=== PATIENT | female | born 1990 | race Caucasian/White ===

== ENCOUNTER 2020-05-31 10:13 | Emergency (ER) | payer OTHER, SELFPAY ==
[2020-05-31 10:26] VITALS: BP 133/71; PULSE 82; RESP 16; TEMP 37.1; O2SAT 100
--- NOTE | 2020-05-31 10:54 | ED.FEMALEGU ---
HPI - Female Genitourinary General Chief complaint: Urogenital-Female Stated complaint: Stomach Pain Time Seen by Provider: 05/31/20 10:45 Source: patient Mode of arrival: ambulatory Limitations: no limitations History of Present Illness HPI Narrative: Brandi Alexander is a 29 yo female with a PMH of anxiety who comes with dysuria, burning with urination.Started about 3 days ago; started to have difficulty emptying bladder and is irritated the genital area does not think has an STD but wants to be checked for for this. Patient is not having abdominal pain per se is unsure of the quantity of vaginal discharge Related Data Allergies Allergy/AdvReac Type Severity Reaction Status Date / Time azithromycin Allergy Mild HIVES Verified 09/18/17 19:48 Sulfa (Sulfonamide Allergy Mild Hives Verified 05/31/20 10:29 Antibiotics) ALL CILLINS Allergy Mild Hives Uncoded 05/31/20 10:29 Review of Systems Review of Systems: Narrative: CONSTITUTIONAL: Denies fever, chills, sweats. EYES: Denies visual changes, redness, discharge. ENT: Denies rhinorrhea, congestion, sore throat, otalgia. CARDIOVASCULAR: Denies chest pain, palpitations, edema. RESPIRATORY: Denies dyspnea, wheezing, cough GASTROINTESTINAL: Denies abdominal pain, nausea, vomiting, diarrhea. GENITOURINARY: Has dysuria, hematuria, abnormal discharge SKIN: Denies rash or itching. NEUROLOGIC: Denies numbness, or focal weakness. PSYCHIATRIC: Denies anxiety or depression. PMFSH Past Medical History Medical History Anxiety Family History Family History Other Hypertension Social History Social History (Updated 05/31/20 @ 10:59 by Zhanna Weber CNP) Smoking status: Never smoker Alcohol intake: current Gender identity (if verbalized by the patient): Female Comments At time of signature, I agree with nursing past medical, surgical, social and family history. There is no relevant family history pertinent to the presenting complaint. Exam Narrative: Exam Narrative: GENERAL: This is a well-nourished, well-developed patient, in mild distress. HEAD: normocephalic, atraumatic. EYES: Sclera clear/white. Vision is grossly intact. EARS: External ears normal, Hearing grossly intact. NOSE: External nose normal without nasal discharge, nares without redness, no rhinorrhea. THROAT: Mucous membranes moist, NECK: Neck supple, CARDIOVASCULAR: Regular rate and rhythm without murmurs, gallops, or rubs. RESPIRATORY: Clear to auscultation. Breath sounds equal bilaterally. No wheezes, rales, or rhonchi. GASTROINTESTINAL: Abdomen soft, non-tender, SKIN: warm, intact with no suspicious lesions or rash, good texture and turgor. : Minimal amount of white thin vaginal discharge vault appears somewhat reddened labia is also erythematous but states that she shaved this morning NEURO: awake, alert, and oriented to person, place and time. There were no obvious focal neurologic abnormalities. Steady gait EXTREMITIES: Normal range of motion. BACK: Nontender without deformity Course Course Emergency Course: Patient comes with dysuria UA dip was totally negative but patient is unsure about STD status so check for STD. Based on pelvic exam, treated for vaginosis with Diflucan. STDs were not treated for preventatively because patient has allergies to the medications used to treat gonorrhea and chlamydia If the STD tests are positive she will need an alternative treatment for STDs Follow-up with [facility] Vital Signs Vital signs: Vital Signs Temperature 98.7 F 05/31/20 10: Pulse Rate 82 05/31/20 10:26 Respiratory Rate 16 05/31/20 10:26 Blood Pressure 133/71 05/31/20 10:26 Pulse Oximetry 100 05/31/20 10:26 Temperature 98.7 F 05/31/20 10:26 Pulse Rate 82 05/31/20 10:26 Respiratory Rate 16 05/31/20 10:26 Blood Pressure 133/71 05/31/20 10:26 Pu
== END 2020-05-31 11:10 | disposition home or self-care (01) ==
PROVIDERS: Emergency Provider Nurse Practitioner; PCP Nurse Practitioner Family
DX: N76.0 Acute vaginitis (principal)
CPT/HCPCS: 81003; 87491; 87591; 87661; 99214; G0463

== ENCOUNTER 2020-06-08 10:32 | Outpatient (NON) | payer OTHER, SELFPAY ==
[2020-06-08 21:25] LABS: SARS-CoV-2 RNA PCR Negative
== END 2020-06-08 10:33 ==
PROVIDERS: PCP Nurse Practitioner Family; Visit Provider Nurse Practitioner Family
DX: Z20.828 Contact with and (suspected) exposure to other viral communicable diseases (principal); R10.9 Unspecified abdominal pain; R19.7 Diarrhea, unspecified; J02.9 Acute pharyngitis, unspecified
CPT/HCPCS: 87635; C9803; U0003

== ENCOUNTER 2020-11-13 15:25 | Emergency (ER) | payer OTHER, SELFPAY ==
[2020-11-13 15:44] VITALS: BP 112/68; PULSE 72; RESP 16; TEMP 36.8; O2SAT 100
--- NOTE | 2020-11-13 15:44 | ED.URI ---
HPI - URI/Sore Throat General Chief Complaint: Upper Respiratory Infection Stated Complaint: sore throat/fever Time Seen by Provider: 11/13/20 15:59 Source: patient and RN notes reviewed Mode of arrival: ambulatory Limitations: no limitations History of Present Illness HPI Narrative: 30-year-old female presents with concern for 3-day history of chills, sweats, headache, nausea. Reports sore throat in the morning. She denies cough, shortness of breath, loss of sense of taste or smell, poor appetite, fever, body aches. Denies any known sick contacts. Denies any intervention. MD elicited complaint: sore throat Related Data Home Medications Medication Instructions Recorded Confirmed Daily Vitamins 11/13/20 Allergies Allergy/AdvReac Type Severity Reaction Status Date / Time azithromycin Allergy Mild HIVES Verified 09/18/17 19:48 Sulfa (Sulfonamide Allergy Mild Hives Verified 05/31/20 10:29 Antibiotics) ALL CILLINS Allergy Mild Hives Uncoded 05/31/20 10:29 Review of Systems Review of Systems: Narrative: CONSTITUTIONAL: Denies malaise or fever. Reports cold chills, hot flashes EYES: Denies visual changes, redness, or discharge. ENT: Denies rhinorrhea, congestion, sinus pain, otalgia. Reports sore throat. CARDIOVASCULAR: Denies chest pain, palpitations, or edema. RESPIRATORY: Denies cough or dyspnea. GASTROINTESTINAL: Denies abdominal pain, vomiting, diarrhea. Reports nausea SKIN: Denies rash or itching. MUSCULOSKELETAL: Denies myalgia. NEUROLOGIC: Reports headache. All systems reviewed & are unremarkable except as noted in HPI and below PMFSH Past Medical History Medical History (Updated 11/13/20 @ 16:18 by Tonie Gibson NP) Anxiety Family History Family History Other Hypertension Social History Social History (Updated 05/31/20 @ 10:59 by Zhanna Weber CNP) Smoking status: Never smoker Alcohol intake: current Gender identity (if verbalized by the patient): Female Comments At time of signature, agree with nursing past medical, surgical, social and family history. There is no relevant family history pertinent to the presenting complaint Exam Narrative: Exam Narrative: GENERAL: Well-appearing, well-nourished, and in no acute distress. HEAD: Normocephalic EYES: PERRLA, conjunctivae clear ENT: Nares clear, turbinates erythematous, clear discharge. Mucous membranes moist. TM pearly barker with dull light reflex bilaterally; no tragal tenderness. Oropharynx not erythematous without lesions. Tonsils not enlarged and without exudate, no drooling, no hoarseness, no trismus, uvula midline. NECK: Supple. No lymphadenopathy CHEST: Clear to auscultation, breath sounds equal. No wheezing, rhonchi, rales, or stridor. No respiratory distress, speaks in full sentences. HEART: Regular rate and rhythm. No murmur heard. SKIN: Warm, dry, no rash. NEURO: Alert and oriented x3. PSYCH: Normal mood and affect Course Course Emergency Course: Patient is aware of diagnosis, understands and agrees to treatment plan. Anticipatory guidance given. Patient agrees to follow-up as directed and is aware of reasons to seek care at the emergency department. Portions of this record may have been created with voice recognition software Vital Signs Vital signs: Vital Signs Temperature 98.3 F 11/13/20 15:44 Pulse Rate 72 11/13/20 15:44 Respiratory Rate 16 11/13/20 15:44 Blood Pressure 112/68 11/13/20 15:44 Pulse Oximetry 100 11/13/20 15:44 Temperature 98.3 F 11/13/20 15:44 Pulse Rate 72 11/13/20 15:44 Respiratory Rate 16 11/13/20 15:44 Blood Pressure 112/68 11/13/20 15:44 Pulse Oximetry 100 11/13/20 15:44 Reviewed. MDM - URI/Sore Throat MDM Narrative Medical decision making narrative: Differential diagnosis considered: Andres virus, strep pharyngitis, allergic rhinitis, upper respiratory tract infection, sinusitis, rhinosinusi
[2020-11-14 19:13] LABS: SARS-CoV-2 RNA PCR Negative
== END 2020-11-13 16:25 | disposition home or self-care (01) ==
PROVIDERS: Emergency Provider Nurse Practitioner; PCP Nurse Practitioner Family
DX: J06.9 Acute upper respiratory infection, unspecified (principal); Z20.822 Contact with and (suspected) exposure to COVID-19; F41.9 Anxiety disorder, unspecified
CPT/HCPCS: 87081; 87426; 87880; 99213; C9803; G0463; U0003; U0005

== ENCOUNTER 2020-12-24 17:39 | Emergency (ER) | payer OTHER, SELFPAY ==
[2020-12-24 17:51] VITALS: BP 102/71; PULSE 82; RESP 16; TEMP 36.9; O2SAT 99
--- NOTE | 2020-12-24 18:01 | ED.URI ---
HPI - URI/Sore Throat General Chief Complaint: Upper Respiratory Infection Stated Complaint: sore throat Source: patient and RN notes reviewed Mode of arrival: ambulatory Limitations: no limitations History of Present Illness HPI Narrative: 30-year-old female presents concern for sore throat that started today. Reports her son was diagnosed with strep. Reports headache that started today which has been taking ibuprofen. She denies rhinorrhea, nasal congestion, cough, shortness of breath, body aches, chills, sweats, fever. MD elicited complaint: sore throat Related Data Home Medications Medication Instructions Recorded Confirmed No Home Medications 12/24/20 12/24/20 Allergies Allergy/AdvReac Type Severity Reaction Status Date / Time azithromycin Allergy Mild HIVES Verified 12/24/20 18:01 Sulfa (Sulfonamide Allergy Mild Hives Verified 12/24/20 18:01 Antibiotics) ALL CILLINS Allergy Mild Hives Uncoded 12/24/20 18:01 Review of Systems Review of Systems: Narrative: CONSTITUTIONAL: Denies malaise, chills, sweats, or fever. EYES: Denies visual changes, redness, or discharge. ENT: Denies rhinorrhea, congestion, sinus pain, otalgia. Reports sore throat. CARDIOVASCULAR: Denies chest pain, palpitations, or edema. RESPIRATORY: Reports cough. Denies dyspnea. GASTROINTESTINAL: Denies abdominal pain, nausea, vomiting, diarrhea SKIN: Denies rash or itching. MUSCULOSKELETAL: Denies myalgia. NEUROLOGIC: Reports headache. All systems reviewed & are unremarkable except as noted in HPI and below PMFSH Past Medical History Medical History (Updated 12/24/20 @ 18:14 by Tonie Gibson NP) Anxiety Family History Family History Other Hypertension Social History Social History (Updated 05/31/20 @ 10:59 by Zhanna Weber CNP) Smoking status: Never smoker Alcohol intake: current Gender identity (if verbalized by the patient): Female Comments At time of signature, agree with nursing past medical, surgical, social and family history. There is no relevant family history pertinent to the presenting complaint Exam Narrative: Exam Narrative: GENERAL: Well-appearing, well-nourished, and in no acute distress. HEAD: Normocephalic EYES: PERRLA, conjunctivae clear ENT: Nares clear, turbinates erythematous, clear discharge. Mucous membranes moist. TM pearly barker with sharp light reflex bilaterally; no tragal tenderness. Oropharynx erythematous without lesions. Tonsils not enlarged and without exudate, no drooling, no hoarseness, no trismus, uvula midline. NECK: Supple. No lymphadenopathy CHEST: Clear to auscultation, breath sounds equal. No wheezing, rhonchi, rales, or stridor. No respiratory distress, speaks in full sentences. HEART: Regular rate and rhythm. No murmur heard. SKIN: Warm, dry, no rash. NEURO: Alert and oriented x3. PSYCH: Normal mood and affect Course Course Emergency Course: Patient is aware of diagnosis, understands and agrees to treatment plan. Anticipatory guidance given. Patient agrees to follow-up as directed and is aware of reasons to seek care at the emergency department. Portions of this record may have been created with voice recognition software Vital Signs Vital signs: Vital Signs Temperature 98.4 F 12/24/20 17:51 Pulse Rate 82 12/24/20 17:51 Respiratory Rate 16 12/24/20 17:51 Blood Pressure 102/71 12/24/20 17:51 Pulse Oximetry 99 12/24/20 17:51 Temperature 98.4 F 12/24/20 17:51 Pulse Rate 82 12/24/20 17:51 Respiratory Rate 16 12/24/20 17:51 Blood Pressure 102/71 12/24/20 17:51 Pulse Oximetry 99 12/24/20 17:51 Reviewed. MDM - URI/Sore Throat MDM Narrative Medical decision making narrative: Differential diagnosis considered: Andres virus, strep pharyngitis, allergic rhinitis, upper respiratory tract infection, sinusitis, rhinosinusitis, nasopharyngitis. viral pharyngitis, otitis media, otitis ext
== END 2020-12-24 18:16 | disposition home or self-care (01) ==
PROVIDERS: Emergency Provider Nurse Practitioner
DX: J02.9 Acute pharyngitis, unspecified (principal)
CPT/HCPCS: 87081; 87880; 99213; G0463

== ENCOUNTER 2021-01-10 19:47 | Emergency (ER) | payer OTHER, SELFPAY ==
--- NOTE | 2021-01-10 19:54 | ED.URI ---
HPI - URI/Sore Throat General Chief Complaint: Upper Respiratory Infection Stated Complaint: Congestion Time Seen by Provider: 01/10/21 19:55 Source: patient and RN notes reviewed Mode of arrival: ambulatory Limitations: no limitations History of Present Illness HPI Narrative: 30-year-old female presents to the [facility] with complaints of sinus congestion, postnasal drip since Monday. No treatment prior to arrival other than hot tea. States she really does not want to take any medications. Denies any fevers, cough, chest pain or shortness of breath. Related Data Home Medications Medication Instructions Recorded Confirmed No Home Medications 12/24/20 12/24/20 Allergies Allergy/AdvReac Type Severity Reaction Status Date / Time azithromycin Allergy Mild HIVES Verified 01/10/21 19:49 Sulfa (Sulfonamide Allergy Mild Hives Verified 01/10/21 19:49 Antibiotics) ALL CILLINS Allergy Mild Hives Uncoded 01/10/21 19:49 Review of Systems Review of Systems: All systems reviewed & are unremarkable except as noted in HPI and below Constitutional: Constitutional: Reports as per HPI, Denies fever(s) and Denies headache(s) Eyes: Eyes: Reports no additional eye complaints ENT: Reports system reviewed and no additional complaints, except as documented, Denies mouth pain, Reports nasal congestion, Reports nasal discharge, Denies neck pain, Reports post nasal drip, Reports sore throat, Denies throat swelling and Denies tongue swelling Cardiovascular: Cardiovascular: Reports no additional cardiovascular complaints and Denies chest pain Respiratory: Respiratory: Reports no additional respiratory complaints, Reports no additional respiratory complaints, Denies chest congestion, Denies cough, Denies dyspnea, Denies dyspnea on exertion, Denies stridor and Denies wheezing Gastrointestinal: Gastrointestinal: Reports no additional gastrointestinal complaints and Denies abdominal pain Musculoskeletal: Musculoskeletal: Reports no additional musculoskeletal complaints Integumentary/Breasts: Skin/Breast: Reports system reviewed and no additional complaints, except as docu Neurologic: Reports system reviewed and no additional complaints, except as documented [facility] Past Medical History Medical History (Updated 01/10/21 @ 20:05 by Tonie Armas) Anxiety Family History Family History Other Hypertension Social History Social History Smoking status: Never smoker Alcohol intake: current Gender identity (if verbalized by the patient): Female Exam Const: General: cooperative, healthy appearing, comfortable, no acute distress, alert and well groomed; No diaphoretic or intoxicated appearing Nutritional Appearance: average body habitus Orientation/consciousness: oriented to person, oriented to place and patient oriented x3 Limitations: no limitations HENMT: Head: normal to inspection Ears: hearing grossly normal bilaterally, external ears normal and TM's normal bilaterally General nose exam: Normal external nose present, Normal nasal mucous membranes and turbinates present and Nasal discharge present clear Face and sinus: normal facial exam and sinus tenderness Mouth: Yes Normal oral and palatal mucosa present, Yes lip normal and Yes moist mucous membranes Throat: uvula midline and postnasal drainage Eyes: General: appearance normal, both eyes and all related structures Neck: Neck: normal visual inspection, full ROM and no lymphadenopathy Thyroid: thyroid normal Chest: Chest palpation & inspection: normal inspection of the chest Resp: Effort & Inspection: normal respiratory effort, able to speak in complete sentences, no audible wheezes, no cough and no respiratory distress Auscultation: clear to auscultation bilaterally GI: Inspection: normal to inspection Back/Spine/Pelvis: Back: no CVA tenderness Skin: General skin
[2021-01-10 19:55] VITALS: BP 123/85; PULSE 84; RESP 16; TEMP 36.5; O2SAT 100
[2021-01-10 20:06] VITALS: BP 124/78
== END 2021-01-10 20:06 | disposition home or self-care (01) ==
PROVIDERS: Emergency Provider Nurse Practitioner; PCP Nurse Practitioner Family
DX: J30.9 Allergic rhinitis, unspecified (principal); R09.82 Postnasal drip
CPT/HCPCS: 99211; G0463

== ENCOUNTER 2021-01-26 15:42 | Emergency (ER) | payer OTHER, SELFPAY ==
[2021-01-26 15:50] VITALS: BP 115/72; PULSE 71; RESP 16; O2SAT 100
[2021-01-26 16:37] LABS: Basophils Percent Auto 0.2 % (0.2-1.2); Eosinophils Absolute Auto 0.3 K/mm3 (0-0.3); Eosinophils Percent Auto 4.9 % (0-4.4); Hematocrit 36.4 % (37.0-47.0); Hemoglobin 11.9 g/dL (12.0-15.0); Immature Granulocyte Absolute 0.01 K/mm3 (0.00-0.031); Immature Granulocyte Percent A 0.2 % (0-0.5); Lymphocytes Percent Auto 40.2 % (18.3-44.2); Mean Corpuscular HGB Conc 32.7 g/dl (32-36); Mean Corpuscular Hemoglobin 28.6 pg (26-34); Mean Corpuscular Volume 87.5 fl (80-100); Monocytes Absolute Auto 0.4 K/mm3 (0.1-0.6); Monocytes Percent Auto 6.8 % (2.6-8.5); Neutrophils Absolute Auto 2.6 K/mm3 (1.3-6.7); Neutrophils Percent Auto 47.7 % (45.5-73.1); Platelet Count Result 245 k/mm3 (150-375); Red Blood Count 4.16 M/mm3 (4.2-5.4); Red Cell Distribution Width 13.4 % (11.5-14.5); White Blood Count 5.5 K/mm3 (4.5-10.0)
[2021-01-26 16:48] LABS: Add Urine Microscopic? YES; Appearance Urine Cloudy (Clear); Bacteria Urine Trace /hpf; Bilirubin Urine Negative (Negative); Color Urine Yellow (Yellow); Glucose Urine UA Negative (Negative); Ketones Urine Negative (Negative); Leukocyte Esterase Ur Trace LEU/UL (Negative); Mucus Urine Few /lpf; Nitrate Urine Negative (Negative); Protein Urine 1+ mg/dL (Negative); RBC Urine 0-2 /hpf (0-2); Specific Grav Ur 1.026 (1.001-1.035); Squamous Epithelial Cell Urine Few /hpf (Few); Urobilinogen Urine Negative mg/dL (<2.0)
[2021-01-26 16:49] LABS: Alanine Aminotransferase 17 U/L (4-35); Albumin Level 4.3 g/dL (3.5-5.1); Alkaline Phosphatase 50 U/L (38-126); Anion Gap 11 mmol/L (8-16); Aspartate Amino Transferase 22 U/L (14-36); Bilirubin,Total 0.3 mg/dL (0.2-1.3); Blood Urea Nitrogen 13 mg/dL (7-17); Calcium 9.6 mg/dL (8.4-10.2); Carbon Dioxide 26 mmol/L (22-30); Chloride 105 mmol/L (98-107); Estimated CRCL calculation 117 ml/min; Estimated Glomerular Filt Rate > 60; Glucose 90 mg/dL (65-105); Lipase 79 U/L (23-300); Potassium 3.9 mmol/L (3.4-5.0); Sodium 142 mmol/L (137-145)
[2021-01-26 16:49] LABS: Blood Urine Negative (Negative)
--- NOTE | 2021-01-26 17:05 | ED.ABDPAIN ---
HPI - Abdominal Pain General Chief Complaint: Abdominal Pain Stated Complaint: abd pain Time Seen by Provider: 01/26/21 15:51 Source: patient Mode of arrival: ambulatory Limitations: no limitations History of Present Illness HPI narrative: 30-year-old with a history of anxiety disorder here with complaints of abdominal pain and constipation for past few days. She states that she was walking this morning and started having lower abdominal pain. She denies any nausea, vomiting. No urinary symptoms. She denies any fever or chills. MD elicited complaint: abdominal pain Pertinent past history: none Onset (ago): hour(s) (3) Pain Consistency: constant Location: other (Lower abdomen) Severity: mild Quality: cramping Radiation: none Migration to: no migration Exacerbating factors: nothing Relieving factors: nothing Related Data Allergies Allergy/AdvReac Type Severity Reaction Status Date / Time azithromycin Allergy Mild HIVES Verified 01/26/21 16:00 Sulfa (Sulfonamide Allergy Mild Hives Verified 01/26/21 16:00 Antibiotics) Penicillins Allergy Hives Verified 01/26/21 16:00 ALL CILLINS Allergy Mild Hives Uncoded 01/26/21 16:00 Review of Systems Review of Systems: All systems reviewed & are unremarkable except as noted in HPI and below Constitutional: Constitutional: Reports no additional constitutional complaints Eyes: Eyes: Reports no additional eye complaints ENT: Reports system reviewed and no additional complaints, except as documented Cardiovascular: Cardiovascular: Reports no additional cardiovascular complaints Respiratory: Respiratory: Reports no additional respiratory complaints Gastrointestinal: Gastrointestinal: Reports as per HPI Genitourinary: Genitourinary: Reports no additional female genitourinary complaints Musculoskeletal: Musculoskeletal: Reports no additional musculoskeletal complaints Neurologic: Reports system reviewed and no additional complaints, except as documented PMFSH Past Medical History Medical History (Updated 01/26/21 @ 17:10 by Cal Garner MD) Anxiety Family History Family History Other Hypertension Social History Social History Smoking status: Never smoker Alcohol intake: current Gender identity (if verbalized by the patient): Female Exam Narrative: Exam Narrative: GENERAL: Well-appearing, well-nourished, and in no acute distress. HEAD: Normocephalic, atraumatic. EYES: PERRLA and EOMI. ENT: Nares clear, no rhinorrhea or epistaxis. Mucous membranes moist. NECK: Supple. CHEST: Clear to auscultation. No respiratory distress. HEART: Regular rate and rhythm. No murmur heard. Normal peripheral pulses. ABDOMEN: Soft, mild lower abd tenderness, nondistended, normal active bowel sounds. EXTREMITIES: Normal range of motion. No edema. SKIN: Warm, dry, no rash. NEURO: No focal deficits. Alert and oriented x3. PSYCH: Normal mood and affect. Course Course Emergency Course: Inform patient about her lab work. She states that she has mild pain. Advised her to eat high-fiber diet take MiraLAX or senna tablets for constipation. Continue home medication for anxiety. Follow-up with your primary doctor. Vital Signs Vital signs: Vital Signs Pulse Rate 71 01/26/21 15:50 Respiratory Rate 16 01/26/21 15:50 Blood Pressure 115/72 01/26/21 15:50 Pulse Oximetry 100 01/26/21 15:50 Pulse Rate 71 01/26/21 15:50 Respiratory Rate 16 01/26/21 15:50 Blood Pressure 115/72 01/26/21 15:50 Pulse Oximetry 100 01/26/21 15:50 MDM - Abdominal Pain Lab Data Result diagrams: 01/26/21 16:26 01/26/21 16:26 Labs: Lab Results 01/26/21 01/26/21 01/26/21 Range/Units 16:25 16:26 16:26 WBC 5.5 (4.5-10.0) K/mm3 RBC 4.16 L (4.2-5.4) M/mm3 Hgb 11.9 L (12.0-15.0) g/dL Hct 36.4 L (37.0-47.0) % MCV
[2021-01-26 17:43] VITALS: BP 120/74; PULSE 64; O2SAT 98
== END 2021-01-26 17:43 | disposition home or self-care (01) ==
PROVIDERS: Emergency Provider Family Medicine; PCP Nurse Practitioner Family
DX: K59.00 Constipation, unspecified (principal); R10.30 Lower abdominal pain, unspecified; F41.9 Anxiety disorder, unspecified
CPT/HCPCS: 36415; 80053; 81001; 83690; 85025; 87086; 87088; 99283

== ENCOUNTER 2021-01-27 11:06 | Outpatient (CLI) | payer OTHER, SELFPAY ==
--- NOTE | ~2021-01-27 | XR_ITS ---
EXAMINATION: XR foot LT min 3V, XR foot RT min 3V DATE: 01/27/2021 11:32 INDICATION: Chronic bilateral foot pain TECHNIQUE: 1. Dorsoplantar, two oblique and lateral views of the left foot were obtained. 2. Dorsoplantar, two oblique and lateral views of the right foot were obtained. COMPARISON: 10/07/2007 FINDINGS: Normal alignment at the bilateral feet. No fracture. Bilateral joint spaces are normal. Bilateral nor mal variant os naviculare, type I on the left and type II on the right. No cortical erosions or perio steal reaction. Soft tissues are unremarkable. IMPRESSION: 1. Negative bilateral foot radiographs. Reviewed, dictated and finalized at location A. IMPRESSION: 1. Negative bilateral foot radiographs.
== END 2021-01-27 11:07 | disposition home or self-care (01) ==
LOC: ANHIMG 11:13
PROVIDERS: PCP Nurse Practitioner Family; Visit Provider Family Medicine
DX: M79.672 Pain in left foot (principal); M79.671 Pain in right foot
CPT/HCPCS: 73630

== ENCOUNTER 2021-03-01 17:48 | Emergency (ER) | payer OTHER, SELFPAY ==
--- NOTE | 2021-03-01 17:56 | ED.URI ---
HPI - URI/Sore Throat General Chief Complaint: Upper Respiratory Infection Stated Complaint: Sore Throat Time Seen by Provider: 03/01/21 17:57 Source: patient and RN notes reviewed Mode of arrival: ambulatory Limitations: no limitations History of Present Illness HPI Narrative: 30-year-old female presents to the [facility] with complaints of sore throat since this morning, frontal sinus headache since yesterday. Had an upset stomach after drinking some type of drink with tomato in it. Denies any abdominal pain on exam. Was concerned for strep throat. Does not believe in taking medications and has not tried anything prior to arrival. States she was really concerned because she has a white spot on her tonsil. Related Data Allergies Allergy/AdvReac Type Severity Reaction Status Date / Time azithromycin Allergy Mild HIVES Verified 03/01/21 17:56 Sulfa (Sulfonamide Allergy Mild Hives Verified 03/01/21 17:56 Antibiotics) Penicillins Allergy Hives Verified 03/01/21 17:56 ALL CILLINS Allergy Mild Hives Uncoded 03/01/21 17:56 Review of Systems Review of Systems: All systems reviewed & are unremarkable except as noted in HPI and below Constitutional: Constitutional: Reports no additional constitutional complaints, Denies chills and Denies fever(s) Eyes: Eyes: Reports no additional eye complaints, Denies change in vision and Denies photophobia ENT: Reports as per HPI and Reports sore throat Cardiovascular: Cardiovascular: Reports no additional cardiovascular complaints and Denies chest pain Respiratory: Respiratory: Reports no additional respiratory complaints, Denies cough and Denies dyspnea Gastrointestinal: Gastrointestinal: Reports as per HPI, Reports abdominal pain (Yesterday, cramping), Denies diarrhea, Denies nausea and Denies vomiting Genitourinary: Genitourinary: Reports no additional female genitourinary complaints Musculoskeletal: Musculoskeletal: Reports no additional musculoskeletal complaints Integumentary/Breasts: Skin/Breast: Reports system reviewed and no additional complaints, except as docu Neurologic: Reports system reviewed and no additional complaints, except as documented Psychiatric: Psychiatric: Reports no additional psychiatric complaints Allergic/Immunologic: Allergic/Immunologic: Reports no additional allergic/immunologic complaints PMFSH Past Medical History Medical History (Updated 03/02/21 @ 00:00 by Shruthi Hamm) Anxiety Family History Family History Other Hypertension Social History Social History Smoking status: Never smoker Alcohol intake: current Gender identity (if verbalized by the patient): Female Comments At the time of my signature, I reviewed and agree with the nursing past medical, surgical, social, and family history. There is no relevant family history pertinent to the patient complaint. Exam Const: General: healthy appearing, no acute distress and alert Nutritional Appearance: well nourished Orientation/consciousness: patient oriented x3 Limitations: no limitations HENMT: Head: normal to inspection Ears: hearing grossly normal bilaterally, external ears normal, TM's normal bilaterally and EAC's normal General nose exam: Normal external nose present and Normal nares present Face and sinus: normal facial exam and sinuses nontender Mouth: Yes Normal oral and palatal mucosa present and Yes lip normal Throat: posterior oropharynx normal, tonsils normal (Does have a tonsillar stone, top of right tonsil) and uvula midline Eyes: Conjunctivae: conjunctivae normal Pupils: Equal, round and reactive pupils present Neck: Neck: normal visual inspection, no lymphadenopathy and no meningeal signs Chest: Chest palpation & inspection: normal inspection of the chest Resp: Effort & Inspection: normal respiratory effort and no use of accessory muscles Auscultat
[2021-03-01 18:00] VITALS: BP 104/67; PULSE 72; RESP 19; TEMP 36.5; O2SAT 100
== END 2021-03-01 18:14 | disposition home or self-care (01) ==
PROVIDERS: Emergency Provider Nurse Practitioner; PCP Nurse Practitioner Family
DX: J02.0 Streptococcal pharyngitis (principal); J35.8 Other chronic diseases of tonsils and adenoids; F41.9 Anxiety disorder, unspecified
CPT/HCPCS: 87081; 87147; 87880; 99213; G0463

== ENCOUNTER 2023-03-29 08:15 | Emergency (ER) | payer OTHER, SELFPAY ==
[2023-03-29] VITALS (11 sets, daily range): BP systolic 127–140; BP diastolic 71–88; PULSE 85–108; RESP 14–23; TEMP 36.8; O2SAT 98–100
--- NOTE | ~2023-03-29 | XR_ITS ---
EXAMINATION: XR chest 2V DATE: 03/29/2023 09:03 INDICATION: Chest pain. TECHNIQUE: Frontal and lateral views of the chest were obtained. COMPARISON: Chest 2 views 03/16/2012 FINDINGS: The chest demonstrates clear lungs without pneumonia, pleural effusion, or pneumothorax. Th e heart size is normal. IMPRESSION: 1. No acute cardiopulmonary disease. Reviewed, dictated and finalized at location B.
--- NOTE | 2023-03-29 08:23 | ECG_ITS ---
Measurements Intervals [place] Rate: 96 P: 65 [place]: 100 QRS: 46 QRSD: 83 T: 21 QT: 332 QTc: 419 Interpretive Statements SINUS RHYTHM WITH SHORT [place] INTERVAL NONSPECIFIC T-WAVE ABNORMALITY NO PREVIOUS ECG AVAILABLE FOR COMPARISON Electronically Signed On 03-29-2023 19:31:56 CDT by Mai Sood M.D.
[2023-03-29 08:53] LABS: Basophils Percent Auto 0.4 % (0.2-1.2); Eosinophils Absolute Auto 0.2 K/mm3 (0-0.3); Eosinophils Percent Auto 2.2 % (0-4.4); Hematocrit 38.2 % (37.0-47.0); Hemoglobin 12.8 g/dL (12.0-15.0); Immature Granulocyte Absolute 0.03 K/mm3 (0.00-0.031); Immature Granulocyte Percent A 0.4 % (0-0.5); Lymphocytes Percent Auto 31.4 % (18.3-44.2); Mean Corpuscular HGB Conc 33.5 g/dl (32-36); Mean Corpuscular Hemoglobin 28.6 pg (26-34); Mean Corpuscular Volume 85.3 fl (80-100); Mean Platelet Volume 10.7 fl (7.4-10.4); Monocytes Absolute Auto 0.6 K/mm3 (0.1-0.6); Neutrophils Absolute Auto 3.8 K/mm3 (1.3-6.7); Neutrophils Percent Auto 56.6 % (45.5-73.1); Platelet Count Result 257 k/mm3 (150-375); Red Blood Count 4.48 M/mm3 (4.2-5.4); Red Cell Distribution Width 13.3 % (11.5-14.5); White Blood Count 6.7 K/mm3 (4.5-10.0)
[2023-03-29 09:03] LABS: Prothrombin Time 13.6 Seconds (11.1-14.7)
[2023-03-29 09:04] LABS: Partial Thromboplastin Time 34.2 SECONDS (22.3-36.8)
[2023-03-29 09:08] LABS: Alanine Aminotransferase 17 U/L (6-35); Albumin Level 4.5 g/dL (3.5-5.1); Alkaline Phosphatase 53 U/L (38-126); Anion Gap 7 mmol/L (8-16); Aspartate Amino Transferase 19 U/L (14-36); Bilirubin,Total 0.6 mg/dL (0.2-1.3); Blood Urea Nitrogen 12 mg/dL (7-17); Calcium 9.6 mg/dL (8.4-10.2); Carbon Dioxide 24 mmol/L (22-30); Chloride 106 mmol/L (98-107); Estimated CRCL calculation 132 ml/min; Estimated Glomerular Filt Rate > 60; Glucose 121 mg/dL (65-110); Lipase 55 U/L (23-300); Potassium 3.8 mmol/L (3.4-5.0); Sodium 137 mmol/L (137-145)
[2023-03-29 09:17] LABS: Troponin I < 0.012 ng/mL (0.000-0.034)
--- NOTE | 2023-03-29 09:24 | ED.GENADULT ---
HPI - General Adult General Chief complaint: Chest Pain Stated complaint: Anxiety Time Seen by Provider: 03/29/23 08:24 History of Present Illness HPI narrative: Patient is a 32-year-old female who presents ER with anxiety. Worsening over the last 3 weeks. Initially started with stress related to work. She has baseline generalized anxiety and also agoraphobia. She has been in conversations with her therapist and it is recommended that she start a daily antianxiety medication but she has been resistant because she is nervous about how it makes her feel. She has been losing sleep. No fevers or chills or sweats. No chest pain but has had some palpitations. Denies alleviating factors. Related Data Allergies Allergy/AdvReac Type Severity Reaction Status Date / Time azithromycin Allergy Mild HIVES Verified 03/29/23 08:26 Sulfa (Sulfonamide Allergy Mild Hives Verified 03/29/23 08:26 Antibiotics) Penicillins Allergy Hives Verified 03/29/23 08:26 ALL CILLINS Allergy Mild Hives Uncoded 03/01/21 17:56 Review of Systems Constitutional: Constitutional: Denies chills and Denies fever(s) Cardiovascular: Cardiovascular: Denies chest pain and Denies radiating jaw, neck or arm pain Respiratory: Respiratory: Denies cough and Denies dyspnea Psychiatric: Psychiatric: Reports anxiety PMFSH Past Medical History Medical History (Updated 03/29/23 @ 09:26 by iYmi Adames MD) Anxiety Family History Family History Other Hypertension Social History Social History Smoking status: Never smoker Alcohol intake: current Gender identity (if verbalized by the patient): Female Exam Narrative: GENERAL: Well-appearing, well-nourished, and in no acute distress. HEAD: Normocephalic, atraumatic. ENT: Mucous membranes moist. CHEST: Clear to auscultation. No respiratory distress. HEART: Regular rate and rhythm. Normal peripheral pulses. ABDOMEN: Soft, nontender, nondistended,. EXTREMITIES: Normal range of motion. No edema. SKIN: Warm, dry, no rash. NEURO: Alert and oriented x3. PSYCH: Normal mood and affect. Course Course Emergency Course: 0.5 mg of Ativan here for anxiety. Hydroxyzine for home. Discussed stress management and need for follow-up with her therapist and PCP. Verbalized understanding. Discharge home. Vital Signs Vital signs: Vital Signs Temperature 98.3 F 03/29/23 08:18 Pulse Rate 108 H 03/29/23 08:18 Respiratory Rate 20 03/29/23 08:18 Blood Pressure 140/88 03/29/23 08:18 Pulse Oximetry 100 03/29/23 08:18 Oxygen Delivery Room Air 03/29/23 08:18 Temperature 98.3 F 03/29/23 08:18 Pulse Rate 108 H 03/29/23 08:18 Respiratory Rate 20 03/29/23 08:18 Blood Pressure 140/88 03/29/23 08:18 Pulse Oximetry 100 03/29/23 08:18 Oxygen Delivery Room Air 03/29/23 08:18 Medical Decision Making Vital Signs Vital Signs: Vital Signs Temperature 98.3 F 03/29/23 08:18 Pulse Rate 108 H 03/29/23 08:18 Respiratory Rate 20 03/29/23 08:18 Blood Pressure 140/88 03/29/23 08:18 Pulse Oximetry 100 03/29/23 08:18 Oxygen Delivery Room Air 03/29/23 08:18 Temperature 98.3 F 03/29/23 08:18 Pulse Rate 108 H 03/29/23 08:18 Respiratory Rate 20 03/29/23 08:18 Blood Pressure 140/88 03/29/23 08:18 Pulse Oximetry 100 03/29/23 08:18 Oxygen Delivery Room Air 03/29/23 08:18 Lab Data 03/29/23 08:46 03/29/23 08:46 Labs: Lab Results 03/29/23 Range/Units 08:46 WBC 6.7 (4.5-10.0) K/mm3 RBC 4.48 (4.2-5.4) M/mm3 Hgb 12.8 (12.0-15.0) g/dL Hct 38.2 (37.0-47.0) % MCV 85.3 (80-100) fl MCH 28.6 (26-34) pg MCHC 33.5 (32-36) g/dl RDW 13.3 (11.5-14.5) % Plt Count 257 (150-375) k/mm3 MPV 10.7 H (7.4-10.4) fl Immature Gran % (Auto) 0.4 (0-0.5) % Neut % (Auto) 56.6 (45
[2023-03-29] MEDS: LORazepam INJ (*CRX) 2 MG/ML VIAL 0.5 MG IV PUSH (09:49)
[2023-03-29] MEDS: ASPIRIN 81 MG CHEWABLE TABLET 324 MG PO (09:51)
== END 2023-03-29 10:45 | disposition home or self-care (01) ==
PROVIDERS: Emergency Provider Emergency Medicine; PCP Nurse Practitioner Family
DX: F41.9 Anxiety disorder, unspecified (principal)
CPT/HCPCS: 36415; 71046; 80053; 83690; 84484; 85025; 85610; 85730; 93005; 96374; 99284; A9270; J2060